=== PATIENT | male | born 1990 | race Caucasian/White ===

== ENCOUNTER 2021-08-13 08:54 | Emergency (ER) | payer OTHER ==
[~2021-08-13] VITALS: Ht 175.3 cm; Wt 83.0 kg
[2021-08-13] MEDS ORDERED: KETOROLAC 60MG/2ML VIAL IM ONE (09:45)
[2021-08-13] MEDS ORDERED: HYDROCODONE/ACETAMINOPHEN 10/325MG TABLET PO ONE (09:45)
[2021-08-13] MEDS ORDERED: CYCL10TA7 MT (13:02)
[2021-08-13] MEDS ORDERED: IBUP-2029 MT (13:02)
[2021-08-13 13:46] VITALS: BP 126/64
== END 2021-08-13 13:49 | disposition home or self-care (01) ==
LOC: ER 09:17
DX: S13.4XXA Sprain of ligaments of cervical spine, initial encounter (principal); Z86.59 Personal history of other mental and behavioral disorders; V43.52XA Car driver injured in collision with other type car in traffic accident, initial encounter; Y93.89 Activity, other specified; Y92.89 Other specified places as the place of occurrence of the external cause; Y99.8 Other external cause status
CPT/HCPCS: 72125; 73562; 96372; 99284; J1885